=== PATIENT | female | born 1960 | race Caucasian/White ===

== ENCOUNTER → 2020-05-22 16:13 | Outpatient (CLI) | payer MEDICARE, SELFPAY ==
[2020-05-22 19:15] LABS: COVID19 -Nasal RAPID Negative (Negative)
== END ==
PROVIDERS: PCP Family Medicine; Visit Provider Family Medicine
DX: R06.02 Shortness of breath (principal)
CPT/HCPCS: 87635

== ENCOUNTER → 2020-11-06 13:44 | Outpatient (CLI) | payer MEDICARE, SELFPAY ==
[2020-11-06] MEDS: COVID-19 VACC, Ad26(JANSSEN)/PF 0.5 ML IM (13:57)
== END ==
PROVIDERS: PCP Family Medicine; Visit Provider Internal Medicine
DX: Z23 Encounter for immunization (principal)
CPT/HCPCS: 0031A; 91303

== ENCOUNTER → 2021-07-19 08:34 | Outpatient (CLI) | payer OTHER, SELFPAY ==
[2021-07-19 10:30] LABS: Free T4, Direct Thyroxine 1.05 ng/dL (0.78-2.19)
[2021-07-19 10:45] LABS: Thyroid Stimulating Hormone 6.99 uIU/mL (0.47-4.68)
== END ==
PROVIDERS: PCP Family Medicine; Referring Provider Obstetrics & Gynecology; Visit Provider Obstetrics & Gynecology
DX: E03.9 Hypothyroidism, unspecified (principal)
CPT/HCPCS: 36415; 84439; 84443

== ENCOUNTER 2021-10-29 17:37 | Emergency (ER) | payer OTHER, SELFPAY ==
[2021-10-29] VITALS (10 sets, daily range): BP systolic 161–196; BP diastolic 70–97; PULSE 57–80; RESP 18–22; TEMP 36.6; O2SAT 97–100; BMI 38.4
--- NOTE | 2021-10-29 18:04 | DI.CT.S_ITS ---
PROCEDURE: CT ABDOMEN PELVIS W CON INDICATIONS: umbilical pain and right sided pain TECHNIQUE: After the administration of intravenous contrast, axial sections acquired from the lung bases to the pubic symphysis. Coronal and sagittal reformats were performed. For radiation dose reduction, the following was used: automated exposure control, adjustment of mA and/or kV according to patient size. COMPARISON: None. FINDINGS: There is a 4.7 cm hypoenhancing mass in the spleen on series 2, image 26, nonspecific. Spleen is otherwise normal. Cholecystectomy. Normal caliber of the intrahepatic and extrahepatic biliary ducts. Normal CT appearance of the liver, gallbladder, adrenal glands, and kidneys. No acute enteric abnormality. Sigmoid diverticulosis without findings of diverticulitis. Uterus and ovaries are normal. Urinary bladder within normal limits. No threshold enlarged intra-abdominal, retroperitoneal, pelvic, or inguinal lymph node. Lung bases are clear. No acute or suspicious osseous lesion. IMPRESSION: Nonspecific 4.7 cm hypoenhancing mass in the spleen. This is considered incidental as the patient's symptoms are periumbilical and right-sided. Although most likely benign this is of indeterminate etiology. Correlation with any prior outside imaging would be helpful to document stability. In the absence of any prior outside imaging, further nonemergent outpatient evaluation with ultrasound or MRI would be recommended. Dictated by: Nba Wilkes M.D. on 10/29/2021 at 19:07 Approved by: Nba Wilkes M.D. on 10/29/2021 at 19:12
--- NOTE | 2021-10-29 18:08 | ED.CHESTPAIN ---
HPI - Chest Pain General Chief Complaint: Chest Pain Stated Complaint: RIGHT SIDE SHARP PAIN BURPING Time Seen by Provider: 10/29/21 17:47 Source: patient Mode of arrival: Ambulatory Limitations: no limitations History of Present Illness HPI narrative: Patient is a 61-year-old, hypothyroid, status post cholecystectomy, presenting today with abdominal pain since around 2:00 p.m.. She says that she has felt like a right side ache is if she was running for the past few weeks off and on. She continues to have some right flank pain does not seem to be radiating not pain is new today. She occasionally feels nauseous. She is having pain in her umbilical area as well but no lower abdominal pain. She denies any fever or chills. No vomiting. She did have 1 episode of diarrhea yesterday. She also has a headache today pressure is in the her front. No photosensitivity or visual changes no numbness tingling or weakness. Related Data Previous Rx's Medication Instructions Recorded albuterol sulfate 90 mcg/actuation 2 puff INHALATION QID PRN #18 gram 05/22/20 aerosol inhaler (Ventolin HFA) conjugated estrogens 0.625 mg/gram 0.625 mg VAGINAL DAILY #30 g 07/19/21 vaginal cream levothyroxine 50 mcg tablet 50 mcg PO DAILY #30 tab 07/21/21 Allergies Allergy/AdvReac Type Severity Reaction Status Date / Time cat dander Allergy Mild watery eyes Verified 07/19/21 07:58 Review of Systems Review of Systems Narrative: GENERAL: Denies chills, fatigue, malaise, fever, sweats, travel HEENT: Denies sinus pain, ear pain, sore throat, difficulty swallowing, neck pain RESPIRATORY: Denies dyspnea, cough, wheezing, hemoptysis, sputum. CARDIOVASCULAR: Denies chest pain, palpitations, orthopnea, edema GASTROINTESTINAL: See HPI : Denies dysuria, frequency, incontinence, hematuria, urinary retention, flank pain. MUSCULOSKELETAL: Denies weakness, joint pain, or bony pain SKIN: No rash, no erythema, no pruritus NEUROLOGIC: + headache Denies weakness, dizziness, numbness, change in speech, confusion PSYCHIATRIC: No concerning psychosocial issues. 12 point review of systems is negative except for those stated above and HPI Patient History Medical History Acute maxillary sinusitis Allergies Ankle pain (~1996) Anxiety (~1980) Asthma Carpal tunnel syndrome (~2007) Chicken pox Chronic back pain Depression (~1980) Fibromyalgia Foot pain Headache Hearing loss (~1986) History of developmental delay (~1962) Idiopathic peripheral neuropathy Measles Migraines Rosacea Scoliosis Shoulder pain Vaginal delivery Surgical History Anesthesia History of bladder surgery (~2018) History of cholecystectomy (~2008) History of total left knee replacement (~12/2016) History of tubal ligation (~11/1995) Family History Father Stroke Mother Ovarian cancer History of heart disease Hypertension Hyperlipidemia Mental health problem Brother Immune disorder Social History Smoking Status: Never smoker alcohol intake: current substance use type: does not use Smoking Status: Never smoker alcohol intake frequency: holidays/special occasions only Substance Use Type: does not use Exam Initial Vital Signs Initial Vital Signs: Vital Signs Temperature 97.8 F 10/29/21 17:37 Pulse Rate 80 10/29/21 17:37 Respiratory Rate 18 10/29/21 17:37 Blood Pressure 193/97 H 10/29/21 17:37 Pulse Oximetry 98 10/29/21 17:37 GENERAL: Alert 61-year-old female appears uncomfortable and in no acute distress. HEENT: Head atraumatic,EOMI, pupils reactive, face symmetric, moist mucous membranes CARDIOVASCULAR: Regular rate and rhythm without murmurs, rubs or gallops. RESPIRATORY: Breath sounds equal bilaterally, no wheezes rales or rhonchi. ABDOMEN: Soft, mild periumbilical tenderness minimal right upper quadrant tenderness mild right lower quadrant tenderness : No CVA tenderness EXTREMITIES: Normal range of motion, no clubbing or edema. Neurovascularly intact NEUROLOGICAL: Alert and oriented x4.Normal gait and speech SKIN: Warm, dry, no laceration, no petechiae, no rashes or lesions. Course Orders Ordered: ED Orders 10/29/21 17:47 EKG-12 Lead Routine 10/29/21 18:00 Complete Blood Count AUTO DIFF Stat Comprehensive Metabolic Panel Stat Lipase Stat Troponin & CK Cardiac Panel Stat 04/01/22 18:04 CT abdomen pelvis w con Stat 10/29/21 19:35 Urine Culture Stat Urine Microscopic Stat Discontinued Medications Morphine Sulfate (Morphine 2 Mg/Ml Inj) 2 mg IV NOW ONE Stop: 10/29/21 18:05 Last Admin: 10/29/21 18:33 Dose: 2 mg Documented by: ZENON Ondansetron HCl (Ondansetron 4 Mg/2 Ml Inj) 4 mg IV NOW ONE Stop: 10/29/21 18:05 Last Admin: 10/29/21 18:33 Dose: 4 mg Documented by: ZENON Vital Signs Vital signs: Vital Signs - 8 hr 10/29/21 17:37 10/29/21 17:53 10/29/21 17:54 Temperature 97.8 F Pulse Rate 80 69 68 Respiratory Rate 18 Blood Pressure 193/97 H 181/80 H Pulse Oximetry 98 100 97 10/29/21 18:00 10/29/21 18:30 10/29/21 18:31 Temperature Pulse Rate 68 60 61 Respiratory Rate 20 21 20 Blood Pressure 196/79 H 161/70 H Pulse Oximetry 98 98 98 10/29/21 19:00 10/29/21 19:49 10/29/21 19:50 Temperature Pulse Rate 60 59 L 57 L Respiratory Rate 21 22 Blood Pressure 165/70 H Pulse Oximetry 99 99 98 10/29/21 20:00 Temperature Pulse Rate 63 Respiratory Rate 21 Blood Pressure Pulse Oximetry 99 MDM - Chest Pain Lab Data Result diagrams: 10/29/21 18:00 10/29/21 18:00 Labs: Lab Results 10/29/21 10/29/21 10/29/21 Range/Units 18:00 18:00 19:35 WBC 9.4 (4.5-11.0) X10^3/uL RBC 4.91 (4.0-5.2) X10^6/uL Hgb 14.0 (12.0-16.0) g/dL Hct 41.2 (36-46) % MCV 83.9 (80-100) fL MCH 28.4 (26-34) PG MCHC 33.9 (30-36) % RDW 13.9 (11.6-14.8) % Plt Count 169 (150-400) X10^3/uL Neut % (Auto) 55.8 (50-75) % Lymph % (Auto) 36.3 (25-40) % [place] % (Auto) 5.1 (3-14) % Eos % (Auto) 1.9 L (2-4) % Baso % (Auto) 0.9 (0-2) % Neut # (Auto) 5300 (5113-9286) /uL Lymph # (Auto) 3400 (9289-1805) /uL [place] # (Auto) 500 (0-900) /uL Eos # (Auto) 200 (0-450) /uL Baso # (Auto) 100 (0-100) /uL Sodium 139 (137-145) mmol/L Potassium 4.3 (3.4-5.1) mmol/L Chloride 105 (98-107) mmol/L Carbon Dioxide 27 (22-32) mmol/L BUN 16 (7-17) mg/dL Creatinine 0.70 (0.52-1.04) mg/dL Estimated GFR > 60.0 (>60) mL/min BUN/Creatinine Ratio 22.9 H (6-22) Glucose 126 H (80-110) mg/dL Calcium 9.0 (8.4-10.2) mg/dL Total Bilirubin 0.7 (0.2-1.3) mg/dL AST 36 (14-36) IU/L ALT 24 (<35) IU/L Alkaline Phosphatase 70 (38-126) U/L Total Creatine Kinase 98 (30-135) U/L CK-MB (CK-2) TNP CK-MB (CK-2) Rel Index TNP Troponin I < 0.012 (0.01-0.034) ng/mL Total Protein 7.5 (6.3-8.2) g/dL Albumin 4.3 (3.5-5.0) g/dL Globulin 3.2 (1.7-4.1) g/dL Albumin/Globulin Ratio 1.3 (1.0-2.8) Lipase 61 (23-300) U/L Urine RBC None seen (0-5/HPF) Urine WBC 10-30/hpf H (0-5/HPF) Ur Squamous Epith Cells 1-5 /hpf (0-5/HPF) Amorphous Sediment 1+ Urine Bacteria Moderate (10-30) H (None) Ur Culture Indicated? Culture not indicate Urine Dip Bedside Urine Glucose Negative Bedside Urine Bilirubin - Negative Bedside Urine Ketone - Negative Urine Specific [place] 1.015 Bedside Urine Occult Blood - Negative Bedside Urine pH 6.0 Bedside Urine Protein - Negative Bedside Urine Urobilinogen - Negative Bedside Urine Nitrite - Negative Bedside Urine Leukocytes + [address] scan - abdomen/pelvis: Radiologist's Impression: PROCEDURE:? CT ABDOMEN PELVIS W CON ? INDICATIONS:? umbilical pain and right sided pain ? TECHNIQUE:? After the administration of intravenous contrast, axial sections acquired from the lung bases to the pubic symphysis.? Coronal and sagittal reformats were performed.? For radiation dose reduction, the following was used:? automated exposure control, adjustment of mA and/or kV according to patient size.? ? COMPARISON:? None. ? FINDINGS:? ? There is a 4.7 cm hypoenhancing mass in the spleen on series 2, image 26, nonspecific.? Spleen is otherwise normal. ? Cholecystectomy.? Normal caliber of the intrahepatic and extrahepatic biliary ducts.? Normal CT appearance of the liver, gallbladder, adrenal glands, and kidneys.? No acute enteric abnormality.? Sigmoid diverticulosis without findings of diverticulitis. ? Uterus and ovaries are normal.? Urinary bladder within normal limits. ? No threshold enlarged intra-abdominal, retroperitoneal, pelvic, or inguinal lymph node. ? Lung bases are clear. ? No acute or suspicious osseous lesion. ? ? ? IMPRESSION: ? Nonspecific 4.7 cm hypoenhancing mass in the spleen.? This is considered incidental as the patient's symptoms are periumbilical and right-sided.? Although most likely benign this is of indeterminate etiology.? Correlation with any prior outside imaging would be helpful to document stability.? In the absence of any prior outside imaging, further nonemergent outpatient evaluation with ultrasound or MRI would be recommended. ? ? Dictated by: Nba Wilkes M.D. on 10/29/2021 at 19:07 ? ? ECG Data Interpretation: Normal sinus rhythm rate 76 WI interval [address] changes no T-wave inversion MDM Narrative Medical decision making narrative: Patient's blood work is overall reassuring. Pain has improved. Blood pressure has improved as well. CT does show that she is 4.7 cm mass on the spleen. She says that that has been there for some time and they are monitoring it at [place]. There is no explanation of her periumbilical pain or right-sided pain at this time. Dissection was considered although she appears quite comfortable, and seems unlikely. CT for dissection was not done with flank pain and periumbilical pain. Urine does have leukocytes and bacteria but lots of wbc's and sediment. No signs or symptoms of UTI either. Discharge Plan Departure Patient Disposition: Home Clinical Impression: Abdominal pain Instructions: DI for Abdominal Pain-Adult Activity Restrictions/Additional Instructions: *You have been diagnosed with abdominal pain *What to do: You were found to have a 4.7 cm spot on your spleen. This is being monitored for you at [place]. No cause of your abdominal pain today. *Continue to take medications as directed Motrin 600 mg every 6 hours if needed for [id number] pain Tylenol 650 mg every 4-6 hours as needed for [id number] pain *Follow up with your primary care provider in 2-3 days or call [phone] *Return to ER if you should have increasing pain, persistent vomiting, fever or any new, worsening or concerning symptoms Prescriptions: No Action levothyroxine 50 mcg tablet 50 mcg PO DAILY Qty: 30 1RF conjugated estrogens 0.625 mg/gram cream 0.625 mg vaginal DAILY Qty: 30 0RF Rx Instructions: Use vaginally daily for 14 days, then 2x weekly. albuterol sulfate [Ventolin HFA] 90 mcg/actuation HFA aerosol inhaler 2 puff INHALATION QID PRN (Reason: bronchospasm) Qty: 18 1RF Referrals: Edwardo Martinez DO [Primary Care Provider] -
[2021-10-29 18:12] LABS: Add Manual Diff / Slide Review NO; Basophils Absolute Auto 100 /uL (0-100); Basophils Percent Auto 0.9 % (0-2); Eosinophils Absolute Auto 200 /uL (0-450); Eosinophils Percent Auto 1.9 % (2-4); Hematocrit 41.2 % (36-46); Lymphocytes Absolute Auto 3400 /uL (1100-4500); Lymphocytes Percent Auto 36.3 % (25-40); Mean Corpuscular HGB Conc 33.9 % (30-36); Mean Corpuscular Hemoglobin 28.4 PG (26-34); Mean Corpuscular Volume 83.9 fL (80-100); Monocytes Absolute Auto 500 /uL (0-900); Monocytes Percent Auto 5.1 % (3-14); Neutrophils Absolute Auto 5300 /uL (1500-7000); Neutrophils Percent Auto 55.8 % (50-75); Platelet Count 169 X10^3/uL (150-400); Red Blood Cell Count 4.91 X10^6/uL (4.0-5.2); Red Cell Distribution Width 13.9 % (11.6-14.8); White Blood Cell Count 9.4 X10^3/uL (4.5-11.0)
[2021-10-29 18:21] LABS: Alanine Aminotransferase 24 IU/L (<35); Albumin 4.3 g/dL (3.5-5.0); Albumin Globulin Ratio 1.3 (1.0-2.8); Alkaline Phosphatase 70 U/L (38-126); Aspartate Aminotransferase 36 IU/L (14-36); BUN Creatinine Ratio 22.9 (6-22); Bilirubin Total 0.7 mg/dL (0.2-1.3); Blood Urea Nitrogen 16 mg/dL (7-17); Carbon Dioxide 27 mmol/L (22-32); Chloride 105 mmol/L (98-107); Creatine Kinase 98 U/L (30-135); Estimated Glomerular Filt Rate > 60.0 mL/min (>60); Globulin 3.2 g/dL (1.7-4.1); Glucose 126 mg/dL (80-110); Lipase 61 U/L (23-300); Sodium 139 mmol/L (137-145); Total Protein 7.5 g/dL (6.3-8.2)
[2021-10-29 18:22] LABS: HEMOLYSIS 118 (0-50); Potassium 4.3 mmol/L (3.4-5.1)
[2021-10-29 18:33] LABS: Troponin I < 0.012 ng/mL (0.01-0.034)
[2021-10-29] MEDS: ONDANSETRON 4 MG/2 ML INJ IV (18:33)
[2021-10-29] MEDS: MORPHINE 2 MG/ML INJ IV (18:33)
[2021-10-29 20:00] LABS: Amorphous Sediment Urine 1+; Bacteria Urine Moderate (10-30); RBC Urine None Seen (0-5/HPF); Squamous Epithelial Cell Urine 1-5 /HPF (0-5/HPF); WBC Urine 10-30/HPF (0-5/HPF)
== END 2021-10-29 20:34 | disposition home or self-care (01) ==
PROVIDERS: Emergency Provider Emergency Medicine; PCP Family Medicine
DX: R10.33 Periumbilical pain (principal); R10.11 Right upper quadrant pain; R10.31 Right lower quadrant pain
CPT/HCPCS: 36415; 74177; 80053; 81003; 81015; 82550; 83690; 84484; 85025; 87086; 93005; 93010; 96374; 96375; 99284; J2270; J2405; Q9967

== ENCOUNTER → 2022-10-17 15:15 | Outpatient (CLI) | payer OTHER, SELFPAY ==
[2022-10-17 17:05] LABS: Influenza A - CEPHEID Flu A NEGATIVE (NEGATIVE); Influenza B - CEPHEID Flu B NEGATIVE (NEGATIVE); Respiratory Syncytial Virus Negative (Negative)
[2022-10-17 17:09] LABS: COVID-19 CEPHEID 4-PLEX PCR Negative (Negative)
== END ==
PROVIDERS: PCP Family Medicine; Visit Provider Student in an Organized Health Care Education/Training Program
DX: J02.9 Acute pharyngitis, unspecified (principal); R05.1 Acute cough; Z20.822 Contact with and (suspected) exposure to COVID-19
CPT/HCPCS: 0241U; 87070

== ENCOUNTER → 2023-08-12 11:49 | Outpatient (CLI) | payer OTHER, SELFPAY ==
--- NOTE | 2023-08-12 | DI.RAD.S_ITS ---
PROCEDURE: XR CHEST 2V INDICATIONS: COUGH TECHNIQUE: 2 views of the chest were acquired. COMPARISON: None. FINDINGS: Surgical changes and devices: None. Lungs and pleura: Lungs are clear. No pleural effusions or pneumothorax. Mediastinum: Mediastinal contours are normal. Heart size is normal. Bones and chest wall: No suspicious bony abnormalities. Soft tissues appear unremarkable. IMPRESSION: No acute cardiopulmonary abnormality is seen. Dictated by: Parrish Wilkes M.D. on 08/12/2023 at 11:43 Approved by: Parrish Wilkes M.D. on 08/12/2023 at 11:44
== END ==
PROVIDERS: PCP Internal Medicine; Referring Provider Physician Assistant; Visit Provider Physician Assistant
DX: R05.9 Cough, unspecified (principal)
CPT/HCPCS: 71046

== ENCOUNTER → 2024-12-28 07:41 | Outpatient (CLI) | payer MEDICARE, SELFPAY ==
--- NOTE | 2024-12-28 07:44 | DI.MG.S_ITS ---
MM screening mammo BI: 12/28/2024. BI-RADS: 1 CLINICAL: 64-year old female for bilateral screening mammogram. Tyrer-Cuzick lifetime risk of 15.1%. No personal or first-degree family history of breast cancer. Current reported family history of breast cancer: maternal grandmother. PRIOR EXAMS: None. This is a baseline mammogram. No prior examinations available. MAMMOGRAPHY TECHNIQUE: 2D and 3D (tomosynthesis) digital mammographic views obtained, with additional images as needed for full coverage. Current study was also evaluated with a Computer Aided Detection (CAD) system. DENSITY C. The breasts are heterogeneously dense, which may obscure small masses. MAMMOGRAPHY FINDINGS Bilateral: No suspicious mass, asymmetry, microcalcification, or other abnormality seen. IMPRESSION: * No evidence of malignancy. RECOMMENDATIONS Bilateral * Annual screening mammography. OVERALL ASSESSMENT CATEGORY BI-RADS-1: Negative. The [employer] recommends annual screening mammography beginning at age 40 for women with average risk of breast cancer. ELECTRONICALLY SIGNED: Jeffrey Kuo M.D. on 12/30/2024 at 07:32:11 AM PT Interpreting Station ID: [id number]
== END ==
PROVIDERS: PCP Internal Medicine; Referring Provider Internal Medicine; Visit Provider Internal Medicine
DX: Z12.31 Encounter for screening mammogram for malignant neoplasm of breast (principal); Z80.3 Family history of malignant neoplasm of breast; R92.333 Mammographic heterogeneous density, bilateral breasts
CPT/HCPCS: 77063; 77067